=== PATIENT | male | born 1935 | race Caucasian/White ===

== ENCOUNTER 2023-04-16 14:26 | Outpatient (CLI) | payer MEDICARE, SELFPAY ==
--- NOTE | 2023-04-16 14:30 | CTR_ITS ---
PROCEDURE INFORMATION: Exam: CTA Head With Contrast, Arteriography Exam date and time: 04/16/2023 2:47 PM Age: 87 years old Clinical indication: Cognitive deficit; Altered mental status; Patient HX: HX of melanoma; Additional info: Change in mental status, history of stroke TECHNIQUE: Imaging protocol: Computed tomographic angiography of the head with contrast. Exam focused on the arteries. 3D rendering (Not supervised by radiologist): MIP and/or 3D reconstructed images were created by the technologist. Radiation optimization: All CT scans at this facility use at least one of these dose optimization techniques: automated exposure control; mA and/or kV adjustment per patient size (includes targeted exams where dose is matched to clinical indication); or iterative reconstruction. Contrast material: OMNI 350; Contrast volume: 100 ml; Contrast route: INTRAVENOUS (IV); COMPARISON: CT head wo/w con [id number] 08/23/2016 9:20 AM RADIATION DOSE METRICS: Total DLP (mGy-cm): 1192.4 FINDINGS: ANTERIOR CIRCULATION: Right internal carotid artery: Intracranial segment is patent with no significant stenosis. No aneurysm. Right middle cerebral artery: No occlusion or significant stenosis. No aneurysm. Right anterior cerebral artery: No occlusion or significant stenosis. No aneurysm. Left internal carotid artery: Intracranial segment is patent with no significant stenosis. No aneurysm. Left middle cerebral artery: No occlusion or significant stenosis. No aneurysm. Left anterior cerebral artery: No occlusion or significant stenosis. No aneurysm. POSTERIOR CIRCULATION: Right vertebral artery: No occlusion or significant stenosis. No aneurysm. Left vertebral artery: No occlusion or significant stenosis. No aneurysm. Basilar artery: No occlusion or significant stenosis. No aneurysm. Right posterior cerebral artery: No occlusion or significant stenosis. No aneurysm. Left posterior cerebral artery: No occlusion or significant stenosis. No aneurysm. Brain: No definite mass, mass effect, or midline shift. Cerebral ventricles: No ventriculomegaly. Orbital cavities: Bilateral cataract surgery. Bones/joints: Unremarkable. No acute fracture. Soft tissues: Unremarkable. PROCEDURE INFORMATION: Exam: CTA Neck With Contrast Exam date and time: 04/16/2023 2:47 PM Age: 87 years old Clinical indication: Cognitive deficit; Altered mental status; Patient HX: HX of melanoma; Additional info: Change in mental status, history of stroke TECHNIQUE: Imaging protocol: Computed tomographic angiography of the neck with contrast. Exam focused on the cervical segments of the vasculature. 3D rendering (Not supervised by radiologist): MIP and/or 3D reconstructed images were created by the technologist. Radiation optimization: All CT scans at this facility use at least one of these dose optimization techniques: automated exposure control; mA and/or kV adjustment per patient size (includes targeted exams where dose is matched to clinical indication); or iterative reconstruction. Contrast material: OMNI 350; Contrast volume: 100 ml; Contrast route: INTRAVENOUS (IV); COMPARISON: CT neck w con* [id number] 09/17/2017 11:06 AM RADIATION DOSE METRICS: Total DLP (mGy-cm): 1192.4 FINDINGS: Right common carotid artery: No stenosis. No dissection or occlusion. Right internal carotid artery: No stenosis of the extracranial segment. No dissection or occlusion. Right external carotid artery: No occlusion or stenosis of the origin. Left common carotid artery: No stenosis. No dissection or occlusion. Left internal carotid artery: No stenosis of the extracranial segment. No dissection or occlusion. Left external carotid artery: No occlusion or stenosis of the origin. Right vertebral artery: No stenosis. No dissection or occlusion. Left vertebral artery: No stenosis. No dissection or occlusion. Soft tissues: Normal. No significant soft tissue swelling. Bones/joints: No acute fracture. CT/CT angio headneck* [id number] IMPRESSION: No stenosis or occlusion of intracranial arteries. IMPRESSION: No stenosis or occlusion. REFERENCES: NASCET CRITERIA. The degree of stenosis in the cervical segment of the internal carotid artery is based on NASCET criteria. Normal is no stenosis. Mild is less than 50% stenosis. Moderate is 50-69% stenosis. Severe is 70% to 99% stenosis. Total occlusion is no detectable patent lumen.
[2023-04-16] MEDS: iohexol 350 mg/mL 100 mL Btl IV (15:03)
== END 2023-04-16 14:27 | disposition home or self-care (01) ==
PROVIDERS: PCP Electrodiagnostic Medicine; Visit Provider Nurse Practitioner Family
DX: R41.82 Altered mental status, unspecified (principal); R55 Syncope and collapse; Z86.73 Personal history of transient ischemic attack (TIA), and cerebral infarction without residual deficits
CPT/HCPCS: 70496; 70498; Q9967

== ENCOUNTER → 2023-05-04 08:58 | Outpatient (BNVA) | payer MEDICARE, SELFPAY | PROVIDERS: PCP Electrodiagnostic Medicine; Visit Provider Nurse Practitioner Family | DX: I25.10 Atherosclerotic heart disease of native coronary artery without angina pectoris (principal); Z95.0 Presence of cardiac pacemaker; I10 Essential (primary) hypertension | CPT/HCPCS: 99214 ==

== ENCOUNTER → 2023-05-07 10:44 | Outpatient (BNVA) | payer MEDICARE, SELFPAY | PROVIDERS: PCP Electrodiagnostic Medicine; Visit Provider Internal Medicine Cardiovascular Disease | DX: Z95.0 Presence of cardiac pacemaker (principal); E78.5 Hyperlipidemia, unspecified; I25.10 Atherosclerotic heart disease of native coronary artery without angina pectoris; I10 Essential (primary) hypertension; Z87.891 Personal history of nicotine dependence | CPT/HCPCS: 99214 ==

== ENCOUNTER 2023-05-22 09:10 | Observation (INO) | payer MEDICARE, SELFPAY ==
[2023-05-22] VITALS (12 sets, daily range): BP systolic 121–160; BP diastolic 62–100; PULSE 70–103; RESP 15–22; TEMP 36.7–37; O2SAT 90–99; BMI 27.9
[2023-05-22 06:50] LABS: Basophils % 0.5 %; Eosinophils # 0.1 10^3/uL (0.0-0.8); Eosinophils % 2.7 %; Hematocrit 41.3 % (37-53); Lymphocytes # 1.5 10^3/uL (0.8-4.8); Lymphocytes % 34.8 %; Mean Corpuscular Hemoglobin 30.5 pg (27-33); Mean Corpuscular Volume 95.4 fl (82-101); Mean Platelet Volume 10.1 fL (7.4-10.4); Monocytes # 0.8 10^3/uL (0.2-0.9); Neutrophils # 1.94 10^3/uL (1.8-7.7); Nucleated Red Blood Cells % 0 %; Platelet Count 183 10^3/cmm (157-399); Red Blood Count 4.33 10^6/uL (3.85-5.65); Red Cell Distribution Width 14.1 % (12.1-15.1)
[2023-05-22 06:59] LABS: Anion Gap 13.1 (5-19); Blood Urea Nitrogen 17 mg/dL (8-23); Calcium 9.2 mg/dL (8.5-10.5); Carbon Dioxide 27 mmol/L (22-29); Chloride 104 mmol/L (98-107); Creatinine Clr Calc Pharmacy 61.6856; Glucose 227 mg/dL (65-115); Osmolality Calculated 299 mOsm/kg (285-295); Potassium 4.1 mmol/L (3.5-5.1); Sodium 140 mmol/L (136-145)
--- NOTE | 2023-05-22 07:11 | W.PM.OPSUD ---
Surgery/Procedure H&P Update DATE OF PROCEDURE: May 22, 2023 DATE H&P PERFORMED: 05/07/23 H&P UPDATE INFORMATION: I have reviewed H&P completed within last 30 days, I have examined patient prior to procedure and No changes to prior documentation PREOP DIAGNOSIS: PPM,JOSE PLANNED PROCEDURE: Operation Date: 05/22/23 07:00 Proposed Procedures p Pacemaker Insertion(Not Applicable) - Rod Delgado MD PATIENT REASSESSED PRIOR TO SEDATION, WITH NO CHANGE NOTED: Yes PHYSICAL EXAM: alert, oriented x 3, clear to auscultation bilaterally and regular rate & rhythm AIRWAY EVAL/ANESTHESIA PLAN: normal airway, see other exam findings, ASA IV, Monitored Anesthesia, Local Anesthesia, Risks, benefits & alternatives of sedation and/or procedure discussed and Patient agrees to continue as planned
--- NOTE | 2023-05-22 08:10 | PM.OP ---
Operative Report Date of procedure: May 22, 2023 Surgeon: Rod Delgado MD Procedure: PROCEDURE: PACEMAKER REVISION PREOPERATIVE DIAGNOSIS: Pacemaker elective replacement indication. POSTOPERATIVE DIAGNOSIS: Pacemaker elective replacement indication. ESTIMATED BLOOD LOSS: NoneNone COMPLICATIONS: None. BRIEF HISTORY: The patient is 87-year-old white male who had a permanent pacemaker implantation for symptomatic bradycardia. The patient was found to have elective replacement indication, during routine office followup evaluation. For further management of patient's condition for the symptomatic bradycardia, the patient required a pacemaker revision. Patient required a dual-chamber pacemaker for symptom relief and the need for AV synchrony The procedure was explained to the patient and his family in detail with the risks and benefits. The risks of bleeding, hematoma, vascular injury, infection and other concomitant complications were explained in detail, which the patient understood well and consented to proceed. PROCEDURES PERFORMED: 1. Explantation of the old pacemaker generator. 2. Implantation of the new generator. The patient brought to the Cardiac Senior Vice President And Chief Information Officer. The left side of the neck and the subclavian area were cleaned and draped in a sterile fashion. 1% Xylocaine was used for local anesthetic agent. A 2 inch long incision was made just below the previous pacemaker scar. By sharp and blunt dissection, the pacemaker pocket was accessed. The old generator was delivered from the pocket. The generator was detached from the lead. The new Medtronic generator was attached to the lead. The pacemaker pocket was copiously irrigated with vancomycin solution. Complete hemostasis was achieved. The lead was positioned behind the generator and the generator was attached to the pectoralis fascia by suturing with 0 Surgilon. Sponge counts were confirmed. The pacemaker pocket was closed in layers. Skin was approximated using 4-0 Vicryl. EXPLANTED DEVICE: Pacemaker Generator: Brand: Bj NATH Model number: [id number] Serial number: [id number]. Date of implant: 01/30/2013 IMPLANTED DEVICES: Ventricular Lead: Date of implantation: 04/28/2005 Model number: [id number] Serial number: [id number] Make: Medtronic. Atrial lead Date of implantation: 04/28/2005 Model number: [id number] Serial number: [id number] Make: Medtronic. Implanted Generator: Date of implantation : 05/22/2023 Brand: Shu Burnett. Model number: [id number] DR 01 Serial number: [id number] Make: Medtronic Stimulation Threshold: The ventricular sensing was 6.6 millivolts. Ventricular lead impedance was 380 ohms and the pacing threshold was 0.5 volts at 0.4 milliseconds. The atrial sensing was 2.3 millivolts. Atrial lead impedance was 361 ohms and the pacing threshold was 0.5 volts at 0.4 milliseconds. The pacemaker was set for AAIR/DDDR mode with an upper rate of 130 and a lower rate of 70. A pressure dressing was applied over the pacemaker site. The patient was transferred back to medical floor in stable condition. Sponge counts were correct.
--- NOTE | 2023-05-22 08:18 | SUR.PHASEI ---
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 Status post pacemaker revision. Site to left upper chest is D/I. Call light in reach. post cath instructions given. Informed to call for needs.
--- NOTE | 2023-05-22 09:28 | PC.NURSE ---
Patient came from clinical lab scientist to CSU. He had a pacemaker change. He has a large dressing on his left upper chest.
[2023-05-22] MEDS: aspirin 325 mg Tablet PO (09:53)
[2023-05-22] MEDS: omega-3 fatty acids 1,000 mg Capsule 1000 MG PO (09:53)
[2023-05-22] MEDS: lisinopril 20 mg Tablet PO (09:53)
[2023-05-22] MEDS: metoprolol succinate ER (24 HR) 50 mg Tablet PO (09:53)
[2023-05-22 09:59] LABS: Glucose Point of Care 202 mg/dL (70-110)
[2023-05-22] MEDS: insulin glargine 100 units/1 mL 27 UNIT SUBCUT (10:43)
[2023-05-22] MEDS: ceFAZolin 2,000 MG in sodium chloride 0.9% (plus) 50 ML 100 MG IV (15:17)
[2023-05-23] MEDS: ceFAZolin 2,000 MG in sodium chloride 0.9% (plus) 50 ML 100 MG IV ×2 (00:08→06:10)
[2023-05-23 04:00] VITALS: BP 151/85; PULSE 71; RESP 22; TEMP 37.1; O2SAT 92
--- NOTE | 2023-05-23 05:27 | ECG_ITS ---
[facility] Test Date: 2023-05-23 Pat Name: Jonathon Mo Department: Room: 105 Gender: Male Associate Programmer: : [id number] Requested By: Rod Delgado Order Number: [id number] Reading MD: Jonas Maloney M.D. Measurements Intervals [place] Rate: 71 P: 130 LA: 210 QRS: 33 QRSD: 127 T: 265 QT: 467 QTc: 509 Interpretive Statements ELECTRONIC ATRIAL PACEMAKER MODERATE INTRAVENTRICULAR CONDUCTION DELAY [110+ ms QRS DURATION] ST DEVIATION AND MODERATE T-WAVE ABNORMALITY, CONSIDER ANTEROLATERAL ISCHEMIA [-0.1+ mV T-WAVE IN V3-V6] ST DEVIATION AND MODERATE T-WAVE ABNORMALITY, CONSIDER INFERIOR ISCHEMIA [-0.1+ mV T-WAVE IN II/aVF] Compared to ECG 09/15/2018 05:39:46 T-wave abnormality now present Possible ischemia now present Myocardial infarct finding no longer present Electronically Signed On 05-23-2023 9:17:36 CDT by Jonas Maloney M.D. [email or web address]
[2023-05-23 05:36] VITALS: PULSE 70
[2023-05-23 08:00] VITALS: BP 153/84; PULSE 70; RESP 18; TEMP 36.6; O2SAT 95
[2023-05-23] MEDS: lisinopril 20 mg Tablet PO (08:13)
[2023-05-23] MEDS: aspirin 325 mg Tablet PO (08:13)
[2023-05-23] MEDS: omega-3 fatty acids 1,000 mg Capsule 1000 MG PO (08:13)
[2023-05-23] MEDS: metoprolol succinate ER (24 HR) 50 mg Tablet PO (08:14)
[2023-05-23] MEDS: insulin glargine 100 units/1 mL 27 UNIT SUBCUT (08:22)
--- NOTE | 2023-05-23 09:00 | P.PN_ITS ---
Subjective 2 Subjective: Patient was admitted to the hospital following the pacemaker revision. He received antibiotic intravenously. So far he has no side effects with the antibiotic. He is remaining stable. Medications: Medication Review Details: Current Medications Aspirin (Aspirin 325 Mg Tablet) 325 mg PO DAILY [facility] Last Admin: 05/23/23 08:13 Dose: 325 mg Sodium Chloride (Sodium Chloride 0.9%) 1,000 mls @ 75 mls/hr IV .[id number] [facility] Last Admin: 05/23/23 08:49 Dose: Not Given Insulin Glargine (Insulin Glargine 100 Units/1 Ml) 27 unit SUBCUT DAILY [facility] Last Admin: 05/23/23 08:22 Dose: 27 unit Lisinopril (Lisinopril 20 Mg Tablet) 20 mg PO DAILY [facility] Last Admin: 05/23/23 08:13 Dose: 20 mg Metoprolol Succinate (Metoprolol Succinate Er (24 Hr) 50 Mg Tablet) 50 mg PO DAILY [facility] Last Admin: 05/23/23 08:14 Dose: 50 mg Non-Formulary Medication (Mv,Ca,Jvj-Enpr-Ah-Lycopene [Centrum Men]) 1 tab PO DAILY [facility] Last Admin: 05/23/23 08:49 Dose: Not Given Qxune-4-Cpia Ethyl Esters (Mont[place]-3 Fatty Acids 1,000 Mg Capsule) 1,000 mg PO DAILY [facility] Last Admin: 05/23/23 08:13 Dose: 1,000 mg Vitals/I&O/Wt Last Vital Signs Temp 97.8 F 05/23/23 08:00 Pulse 70 05/23/23 08:00 Resp 18 05/23/23 08:00 BP 153/84 05/23/23 08:00 Pulse Ox 95 05/23/23 08:00 O2 Del Method Room Air 05/23/23 08:00 05/22/23 05/23/23 05/23/23 22:59 06:59 14:59 Intake Total 286 / 286 50 / 336 290 / 290 Output Total 325 / 325 Balance 286 / 286 50 / 336 -35 / -35 Weight last 48 hrs Weight 173 lb Physical Exam 2 Narrative: GENERAL: The patient is alert and oriented times three. Not in any acute distress. HEENT: No significant pallor, icterus or lymphadenopathy.Oral cavity: There are no mucous membrane lesions. NECK: Trachea appears to be central. No masses noted. No JVD or thyromegaly appreciated. RESPIRATORY: Chest is symmetrical. No intercostals muscle retraction or any accessory muscle activation. Breath sounds are heard bilaterally. No rales or rhonchi heard. No evidence of any consolidation. The pacemaker site has no hematoma bleeding BREASTS: Deferred. HEART: The heart sounds are normal. No S3 or S4. No significant murmurs. No pericardial rub ABDOMEN: No vessel pulsations or distention. No tenderness. No organomegaly appreciated. Bowel sounds are normally heard. : Deferred. RECTAL: Deferred. LYMPHATIC: No lymphadenopathy noted in the neck. EXTREMITIES: No edema or cyanosis. No clubbing. MUSCULOSKELETAL: No acute joint deformities or swelling SKIN: There are no significant rashes or ecchymosis NEUROPSYCHIATRIC: The patient is alert and oriented x3. Appears to be in a good mood. No tremors or rigidity noted. Data 05/22/23 06:20 05/22/23 06:20 Other Labs: Laboratory Last Values WBC 4.40 10^3/uL (3.29-11.43) 05/22/23 06:20 RBC 4.33 10^6/uL (3.85-5.65) 05/22/23 06:20 Hgb 13.20 g/dL (11.27-16.99) 05/22/23 06:20 Hct 41.3 % (37-53) 05/22/23 06:20 MCV 95.4 fl (82-101) 05/22/23 06:20 MCH 30.5 pg (27-33) 05/22/23 06:20 MCHC 32.0 g/dL (30-55) 05/22/23 06:20 RDW 14.1 % (12.1-15.1) 05/22/23 06:20 Plt Count 183 10^3/cmm (157-399) 05/22/23 06:20 MPV 10.1 fL (7.4-10.4) 05/22/23 06:20 Neut % (Auto) 44.0 % 05/22/23 06:20 Lymph % (Auto) 34.8 % 05/22/23 06:20 [place] % (Auto) 18.0 % 05/22/23 06:20 Eos % (Auto) 2.7 % 05/22/23 06:20 Baso % (Auto) 0.5 % 05/22/23 06:20 Neut # (Auto) 1.94 10^3/uL (1.8-7.7) 05/22/23 06:20 Lymph # (Auto) 1.5 10^3/uL (0.8-4.8) 05/22/23 06:20 [place] # (Auto) 0.8 10^3/uL (0.2-0.9) 05/22/23 06:20 Eos # (Auto) 0.1 10^3/uL (0.0-0.8) 05/22/23 06:20 Baso # (Auto) 0.0 10^3/uL (0.0-0.1) 05/22/23 06:20 Nucleated RBC % (auto) 0 % 05/22/23 06:20 Nucleated RBCs # 0.0 /100WBC 05/22/23 06:20 Sodium 140 mmol/L (136-145) 05/22/23 06:20 Potassium 4.1 mmol/L (3.5-5.1) 05/22/23 06:20 Chloride 104 mmol/L (98-107) 05/22/23 06:20 Carbon Dioxide 27 mmol/L (22-29) 05/22/23 06:20 Anion Gap 13.1 (5-19) 05/22/23 06:20 BUN 17 mg/dL (8-23) 05/22/23 06:20 Creatinine 0.8 mg/dL (0.7-1.2) 05/22/23 06:20 GFR Calculation Not Reportable 05/22/23 06:20 Glucose 227 mg/dL (65-115) H 05/22/23 06:20 POC Glucose 202 mg/dL (70-110) H 05/22/23 09:51 Calculated Osmolality 299 mOsm/kg (285-295) H 05/22/23 06:20 Calcium 9.2 mg/dL (8.5-10.5) 05/22/23 06:20 A&P Assessment and plan (1) Pacemaker generator end of life: Status post pacemaker revision. Currently patient seems to be doing okay. The pacemaker function was found to be appropriate. (2) HTN (hypertension): Blood pressures are stage II. I may increase the dose of the lisinopril to 40 mg p.o. daily. Qualifiers: Hypertension type: primary hypertension Qualified Code(s): I10 - Essential (primary) hypertension (3) Dyslipidemia: Continue on the current treatment with (4) ASHD (arteriosclerotic heart disease): Since the patient has no specific symptoms of coronary insufficiency, is advised to continue on the current medications. We will continue on the risk modifying measures. Advised to contact our office, if the patient develop any significant chest pain or other ischemic symptoms (5) Carotid stenosis, bilateral: Asymptomatic. Continue the risk modifying measures. Plan Patient is being discharged home today. Advised to continue on the above medications. He also is advised to take cephalexin 500 milligrams by mouth every six hours for five days; multivitamin one tablet by mouth daily for two weeks; Postpacemaker care instructions were given. Patient will be coming back to the office next week for a wound check and pacemaker interrogation. In the event of the patient developing any unusual pain, swelling or bleeding at the pacemaker site, is instructed to call us or come back to the hospital. Patient will be taking the antibiotics and the multivitamins as instructed. May continue taking the other medications as below. Attestations 2 Medical Necessity Statement*: Discharge home today Coding Level of Care Code 11358 Diagnoses Pacemaker generator end of life Z45.010 Primary hypertension I10 Hypertension type: primary hypertension Dyslipidemia E78.5 ASHD (arteriosclerotic heart disease) I25.10 Carotid stenosis, bilateral I65.23 Time Spent (min) 25
[2023-05-23 10:20] VITALS: BP 153/84; PULSE 70; RESP 18; TEMP 36.6; O2SAT 95
== END 2023-05-23 11:27 | disposition home or self-care (01) ==
LOC: CSU 09:10
PROVIDERS: Admitting Provider Internal Medicine Cardiovascular Disease; PCP Electrodiagnostic Medicine; Visit Provider Internal Medicine Cardiovascular Disease
DX: Z45.010 Encounter for checking and testing of cardiac pacemaker pulse generator [battery] (principal); I10 Essential (primary) hypertension; E78.5 Hyperlipidemia, unspecified; I65.23 Occlusion and stenosis of bilateral carotid arteries; I25.10 Atherosclerotic heart disease of native coronary artery without angina pectoris
CPT/HCPCS: 33228; 36415; 36416; 80048; 82962; 85025; 93005; 96372; 96374; 96375; 97165; 99152; 99153; A4216; A4565; C1769; C1786; G0378; J0690; J1200; J1815; J2250; J3010; J3370; J7030; J7050

== ENCOUNTER → 2023-06-07 12:27 | Outpatient (BNVA) | payer MEDICARE, SELFPAY | PROVIDERS: PCP Electrodiagnostic Medicine; Visit Provider Nurse Practitioner Family | DX: Z95.0 Presence of cardiac pacemaker (principal) | CPT/HCPCS: 99024; 99213 ==

== ENCOUNTER → 2023-07-24 13:27 | Outpatient (BNVA) | payer MEDICARE, SELFPAY | PROVIDERS: PCP Electrodiagnostic Medicine; Visit Provider Internal Medicine | DX: I25.10 Atherosclerotic heart disease of native coronary artery without angina pectoris (principal); I10 Essential (primary) hypertension; E78.5 Hyperlipidemia, unspecified; E11.9 Type 2 diabetes mellitus without complications; Z79.4 Long term (current) use of insulin; Z87.891 Personal history of nicotine dependence | CPT/HCPCS: 99214 ==